=== PATIENT | female | born 1995 | race Caucasian/White ===

== ENCOUNTER 2020-01-09 09:41 | Emergency (ER) | payer OTHER ==
[~2020-01-09] VITALS: Ht 165.1 cm; Wt 108.7 kg
[~2020-01-09 09:41] MED LIST: FOLI1TAB19 PO; PREN-385 PO
[2020-01-09 09:50] VITALS: BP 113/65
--- NOTE | 2020-01-09 09:51 | NUR ---
PT TAKEN TO ER BED 12
--- NOTE | 2020-01-09 10:10 | NUR ---
LABS AT BEDSIDE DREWING BLOOD SAMPLE.
[2020-01-09 10:20] LABS: BASOPHILS # (AUTO) 0.1 K/uL (0.00-0.22); BASOPHILS % (AUTO) 1.1 % (0.0-2.0); EOSINOPHILS % (AUTO) 0.4 % (0.0-4.0); HEMATOCRIT 36.9 % (36-48); HEMOGLOBIN 12.5 g/dL (12.0-16.0); LYMPHOCYTES # (AUTO) 1.5 K/uL (2.5-16.5); LYMPHOCYTES % (AUTO) 22.4 % (20.5-51.1); MEAN CORPUSCULAR HEMOGLOBIN 31 pg (27-31); MEAN CORPUSCULAR HGB CONC 34 g/dL (33-37); MEAN CORPUSCULAR VOLUME 92.3 fL (80-94); MONOCYTES # (AUTO) 0.4 K/uL (0.8-1.0); NEUTROPHILS # (AUTO) 4.7 K/uL (1.8-7.7); NEUTROPHILS % (AUTO) 70.1 % (42.2-75.2); PLATELET COUNT (AUTO) 137 K/uL (140-450); RED BLOOD CELL COUNT(AUTO) 3.99 MIL/uL (4.20-5.40); RED CELL DISTRIBUTION WIDTH 13.9 % (11.6-13.7); WHITE BLOOD COUNT (AUTO) 6.7 K/uL (4.8-10.8)
[2020-01-09 10:21] LABS: BILIRUBIN,URINE NEGATIVE (NEGATIVE); BLOOD, URINE NEGATIVE (NEGATIVE); COLOR,URINE AMBER (YELLOW); LEUKOCYTE ESTERASE ,URINE NEGATIVE (NEGATIVE); NITRITE, URINE NEGATIVE (NEGATIVE); PH,URINE 6.5 (5.0-9.0); UGLUCOSE NEGATIVE (NEGATIVE)
--- NOTE | 2020-01-09 10:25 | NUR ---
ULTRASOUND AT BEDSIDE
--- NOTE | 2020-01-09 10:26 | NUR ---
US AT BEDSIDE.
[2020-01-09 10:33] LABS: ANION GAP 13.3 (8-16); CARBON DIOXIDE 26.7 mmol/L (21-32); CREATININE 0.8 mg/dL (0.6-1.3)
[2020-01-09 10:34] LABS: APPEARANCE,URINE SLIGHTLY HAZY (CLEAR)
[2020-01-09 10:35] LABS: RBC,URINE 0-5 /HPF (0-5); WBC,URINE 0-5 /HPF (0-5)
[2020-01-09 10:41] LABS: ALBUMIN 3.5 g/dL (3.4-5.0); TOTAL BILIRUBIN 0.5 mg/dL (0.0-1.0)
--- NOTE | 2020-01-09 11:22 | NUR ---
DR CORRALES AT BEDSIDE EVALUATING PT.
[2020-01-09 11:27] VITALS: BP 113/65
--- NOTE | 2020-01-09 11:29 | NUR ---
Patient discharged with v/s stable. Written and verbal after care instructions given and explained. Patient verbalized understanding. Ambulatory with steady gait. All questions addressed prior to discharge. Advised to follow up with PMD.
== END 2020-01-09 11:29 | disposition home or self-care (01) ==
LOC: MED 09:41
DX: O20.0 Threatened abortion (principal); D69.6 Thrombocytopenia, unspecified; F12.90 Cannabis use, unspecified, uncomplicated; Z34.00 Encounter for supervision of normal first pregnancy, unspecified trimester; Z79.899 Other long term (current) drug therapy
CPT/HCPCS: 36415; 76817; 80053; 81001; 81025; 84702; 85025; 86900; 86901; 99284; Q0092

== ENCOUNTER 2020-02-03 17:28 | Emergency (ER) | payer OTHER ==
[~2020-02-03] VITALS: Ht 165.1 cm; Wt 106.1 kg
[2020-02-03 17:48] VITALS: BP 128/70
[2020-02-03 18:14] VITALS: BP 128/70
== END 2020-02-03 18:14 | disposition home or self-care (01) ==
LOC: MED 17:28
DX: K21.9 Gastro-esophageal reflux disease without esophagitis (principal); Z79.899 Other long term (current) drug therapy
CPT/HCPCS: 99282